=== PATIENT | male | born 1995 | race Caucasian/White ===

== ENCOUNTER → 2017-02-23 | Day surgery (SDC) | payer OTHER ==
[~2017-02-23] VITALS: Ht 175.3 cm; Wt 88.5 kg
[~2017-02-23] MED LIST: CHLOROPROCAINE 2 % INJ PRES.FREE 20 ML VIAL (J2400) As Ordered ONE; LR 1,000 ML IV ONE; LR 1,000 ML IV SCH; MIDAZOLAM INJ 2 MG/2 ML VIAL (J2250) As Ordered ONE; NORCO, ANEXSIA 5/325MG TABLET (HYDROcodone/ACETAMINOPHEN) PO PRN; ONDANSETRON 4MG/2ML VIAL (J2405) IV PRN; PERCOCET 5MG/325MG TAB PO PRN; PROPOFOL 200 MG/20 ML VIAL As Ordered ONE; fentaNYL 100 MCG/2 ML INJECTION (J3010) As Ordered ONE; fentaNYL 100 MCG/2 ML INJECTION (J3010) IV PRN
[2017-02-23 12:20] VITALS: BP 138/83
--- NOTE | 2017-02-23 13:52 | RO ---
DATE OF PROCEDURE: 02/23/2017 PREOPERATIVE DIAGNOSIS: Pilonidal cyst. POSTOPERATIVE DIAGNOSIS: Pilonidal cyst. PROCEDURE: Pilonidal cystectomy. SURGEON: Dr. Machuca BATCH HE[employer] TREAT OPERATOR: None. ANESTHESIA: Spinal. COMPLICATIONS: None. INDICATIONS FOR PROCEDURE: The patient is a 21-year-old male who presents with a history of pilonidal cyst. Recommendation was to proceed with pilonidal cystectomy. Risks and benefits of the procedure not limited to but including bleeding, infection, damage to surrounding structures, need for further or repeat procedure were discussed in detail with the patient. Informed consent was obtained and the procedure was planned. DESCRIPTION OF PROCEDURE: The patient brought back to operating room #6. After sufficient spinal sedation, he was placed in the prone position. The sacral area was sterilely prepped and draped with Betadine. A time-out was done to confirm proper patient and proper procedure. Following that, 5 cm elliptical incision was made around the sinus tract, opening in the midline. The skin incision was then carried down to the level of the presacral fascia using electrocautery. Once this was completed, the cyst and sinus tract were removed intact as one specimen. Electrocautery was then used to help control hemostasis inside of the wound cavity. The wound was then irrigated. There were no signs of any more bleeding. The wound was packed with a sterile dry 4x4, covered with another dry 4x4 and covered with tape. This ended the procedure, and the patient was then awakened from anesthesia and sent to postanesthesia care unit in stable condition.
== END | disposition home or self-care (01) ==
LOC: M SDC 07:56
PROVIDERS: ATTEND Surgery
DX: L05.91 Pilonidal cyst without abscess (principal)
CPT/HCPCS: 11770; 88304; J0690; J2250; J2400; J3010